=== PATIENT | female | born 1995 | race Caucasian/White ===

== ENCOUNTER → 2018-09-10 | Outpatient (CLI) | payer OTHER ==
--- NOTE | 2018-09-10 12:49 | RAD ---
Radionuclide gastric emptying study, 09/10/2018: HISTORY: Nausea, retained food in the stomach The study was performed utilizing a solid test meal radiolabeled with 2 mCi of technetium 99m sulfur colloid. The following gastric retention values were obtained: 1 hour- 92 percent (normal is less than 90 percent) 2 hours- 41 percent (normal is less than 60 percent) 3 hours- 20 percent (normal is less than 30 percent) 4 hours- 1 percent (normal is less than 10 percent) A gastric T1/2 of 111 minutes was also calculated. IMPRESSION: The majority of the gastric retention values are in the normal range. Electronically signed by: Vernon Cali MD (09/10/2018 12:46 PM) [facility]
== END | disposition home or self-care (01) ==
LOC: NM 07:56
PROVIDERS: ATTEND Internal Medicine Gastroenterology
DX: R11.0 Nausea (principal); K31.89 Other diseases of stomach and duodenum
CPT/HCPCS: 78264; A9541